=== PATIENT | male | born 2000 | race Caucasian/White ===

== ENCOUNTER 2021-05-03 16:19 | Emergency (ER) | payer MEDICAID, SELFPAY ==
[2021-05-03 16:34] VITALS: BP 130/76; PULSE 70; RESP 18; TEMP 37.1; O2SAT 97; BMI 26.6
== END 2021-05-03 21:08 | disposition left against medical advice (07) ==
PROVIDERS: Emergency Provider Emergency Medicine; PCP Family Medicine
DX: R04.0 Epistaxis (principal)
CPT/HCPCS: 99281; 99282